=== PATIENT | female | born 1950 | race African-American/Black ===

== ENCOUNTER 2018-11-16 12:03 | Inpatient (IN) | payer MEDICARE, OTHER ==
[2018-11-16] VITALS (28 sets, daily range): BP systolic 85–130; BP diastolic 51–81
[~2018-11-16] VITALS: Ht 154.9 cm; Wt 50.8 kg
[~2018-11-16 12:03] MED LIST: ETOMIDATE 2MG/ML 10ML VIAL IV ONE; SUCCINYLCHOLINE CHLORIDE 200MG/10ML IV ONE
[2018-11-16] MEDS ORDERED: LORAZEPAM 2MG/ML CPJ IM STA (12:08)
[2018-11-16] MEDS ORDERED: LORAZEPAM 2MG/ML CPJ ONE (12:17)
[2018-11-16] MEDS ORDERED: NALOXONE HCL 0.4 MG/ML 1ML VIAL IV ONE (12:45)
[2018-11-16 13:04] LABS: BG BASE EXCESS -0.9 mmol/L (-2.0-2.0); BG CARBOXYHEMOGLOBIN 1.2 % (0.5-1.5); BG DEOXYHEMOGLOBIN 10.8 % (0.0-5.0); BG FRACTION INSPIRED OXYGEN 100; BG HCO3 ACT 28.5 mmol/L (22.0-26.0); BG METHEMOGLOBIN 0.3 % (0.0-1.5); BG OXYHEMOGLOBIN 87.7 % (94.0-97.0); BG PCO2 71.8 mmHg (35.0-45.0); BG PH 7.216 (7.350-7.450); BG PO2 69.1 mmHg (75.0-100.0); BG SAMPLE SITE RIGHT BRACHIAL; BG TOTAL HEMOGLOBIN 12.6 g/dL (12.0-18.0); BG VENT MODE MASK - NRB
[2018-11-16] MEDS ORDERED: IPRATROPIUM BROMIDE (0.02%) 0.5MG/2.5ML NEB HHN STA (13:39)
[2018-11-16] MEDS ORDERED: METHYLPREDNISOLONE SOD SUCC 125 MG/2 ML VIAL IV STA (13:39)
[2018-11-16 14:00] LABS: BASOPHILS % 1.5 % (0.0-2.0); HEMATOCRIT. 35.7 % (36.0-48.0); HEMOGLOBIN. 12.2 g/dL (12.0-16.0); LYMPHOCYTES % 12.1 % (20.0-50.0); MEAN CORPUSCULAR VOLUME 105.5 fL (81.0-99.0); MONOCYTES % 2.9 % (2.0-8.0); NEUTROPHILS % 83.5 % (40.0-76.0); PLATELET 413 x1000/uL (130-400); RED BLOOD CELL COUNT 3.39 mill/uL (4.2-5.4); RED CELL DISTRIBUTION WIDTH 15.2 % (11.6-14.6)
[2018-11-16] MEDS: ALBUTEROL (0.083%) 2.5MG/3ML NEB HHN SCH ×3 (14:00→15:00)
[2018-11-16 14:05] LABS: CHLORIDE 86 mEq/L (98-107)
[2018-11-16 14:07] LABS: INR 1.1; PROTHROMBIN TIME 10.8 sec (9.1-11.1)
[2018-11-16 14:13] LABS: CREATINE KINASE 124 IU/L (26-192)
[2018-11-16 15:13] LABS: CLARITY URINE CLEAR (CLEAR); COLOR URINE DARK YELLOW (YELLOW); KETONES URINE 1+ (NEGATIVE); LEUKOCYTE ESTERASE URINE NEGATIVE (NEGATIVE); NITRITE URINE NEGATIVE (NEGATIVE); OCCULT BLOOD URINE NEGATIVE (NEGATIVE); PROTEIN URINE TRACE (NEGATIVE); SPECIFIC GRAVITY URINE 1.019 (1.005-1.030)
[2018-11-16] MEDS ORDERED: SODIUM CHLORIDE 0.9% 1,000 ML IV ONE (15:35)
[2018-11-16] MEDS ORDERED: DEXT 5%/0.45% NACL 1000ML 1,000 ML IV SCH (16:38)
[2018-11-16] MEDS ORDERED: MIDAZOLAM HCL 50 MG in DEXTROSE 5% WATER 40 ML IV ONE (16:45)
[2018-11-16] MEDS ORDERED: CLONIDINE 0.1MG TABLET PO PRN (16:45)
[2018-11-16] MEDS ORDERED: IPRATROPIUM/ALBUTEROL 0.5-3(2.5)MG/3ML NEB INH PRN (16:45)
[2018-11-16] MEDS ORDERED: ACETAMINOPHEN 325MG TABLET PO PRN (16:45)
[2018-11-16] MEDS ORDERED: MAGNESIUM/ALUMINUM HYDROXIDE/SIMETHICONE 30ML UDC PO PRN (16:45)
[2018-11-16] MEDS ORDERED: NA PHOS,M-B/NA PHOS,DI-BA ENEMA 118ML PR PRN (16:45)
[2018-11-16] MEDS ORDERED: DIPHENHYDRAMINE 50MG/ML VIAL IV PRN (16:45)
[2018-11-16] MEDS ORDERED: HYDROCODONE/ACETAMINOPHEN 5/325MG TABLET PO PRN (16:45)
[2018-11-16] MEDS ORDERED: LORAZEPAM 2MG/ML CPJ IV PRN (16:45)
[2018-11-16] MEDS ORDERED: FENTANYL CITRATE/PF 50MCG/ML 2ML VIAL IV ONE (16:45)
[2018-11-16] MEDS ORDERED: MORPHINE SULFATE 4 MG/ML CPJ (NOT FOR IM USE) IV PRN (16:45)
[2018-11-16] MEDS ORDERED: DOCUSATE SODIUM 100MG CAPSULE PO PRN (16:45)
[2018-11-16] MEDS ORDERED: ONDANSETRON HCL 4MG/2ML INJ IV PRN (16:45)
[2018-11-16] MEDS ORDERED: GUAIFENESIN 200MG/10ML SUGAR FREE UDC PO PRN (16:45)
[2018-11-16 16:49] LABS: T4 FREE 1.1 ng/dL (0.76-1.46)
[2018-11-16 17:58] LABS: BG BASE EXCESS -2.5 mmol/L (-2.0-2.0); BG CARBOXYHEMOGLOBIN 0.5 % (0.5-1.5); BG DEOXYHEMOGLOBIN 0.3 % (0.0-5.0); BG FRACTION INSPIRED OXYGEN 100; BG HCO3 ACT 22.7 mmol/L (22.0-26.0); BG METHEMOGLOBIN 0.4 % (0.0-1.5); BG OXYGEN SATURATION 99.7 % (92.0-98.5); BG OXYHEMOGLOBIN 98.8 % (94.0-97.0); BG PCO2 40.9 mmHg (35.0-45.0); BG PH 7.363 (7.350-7.450); BG PO2 356.3 mmHg (75.0-100.0); BG SAMPLE SITE RIGHT BRACHIAL; BG TIDAL VOLUME(mL) 500 mL; BG TOTAL HEMOGLOBIN 12.5 g/dL (12.0-18.0); BG VENT MODE VENT - A/C; BG VENT RATE 14 set
[2018-11-16] MEDS ORDERED: ENOXAPARIN 40MG/0.4ML SYR SUBCUT SCH (18:00)
[2018-11-16] MEDS: METHYLPREDNISOLONE SOD SUCC 125 MG/2 ML VIAL IV SCH ×2 (18:08→23:53)
[2018-11-16] MEDS ORDERED: DEXT 5%/LACTATED RINGERS 1,000 ML IV SCH (18:15)
[2018-11-16] MEDS ORDERED: PHENYTOIN SODIUM 1,000 MG in SODIUM CHLORIDE 0.9% 100 ML IV NR (19:00)
[2018-11-16] MEDS: PIPERACILLIN/TAZ 3.375G PREMIX 50 ML IV SCH (20:54)
[2018-11-16] MEDS: IPRATROPIUM/ALBUTEROL 0.5-3(2.5)MG/3ML NEB HHN SCH (20:59)
[2018-11-16 21:00] LABS: CHLORIDE 90 mEq/L (98-107)
[2018-11-16] MEDS ORDERED: NICARDIPINE 100 MG in SODIUM CHLORIDE 0.9% 60 ML IV PRN (22:15)
[2018-11-17] VITALS (93 sets, daily range): BP systolic 60–152; BP diastolic -23–108
[2018-11-17] MEDS: IPRATROPIUM/ALBUTEROL 0.5-3(2.5)MG/3ML NEB HHN SCH ×6 (00:46→20:38)
[2018-11-17 01:13] LABS: *AMPHETAMINES SCREEN URINE NEGATIVE (NEGATIVE); *BARBITURATES SCREEN URINE NEGATIVE (NEGATIVE)
[2018-11-17 01:14] LABS: *BENZODIAZEPINES SCREEN URINE PRESUMTIVE POSITIVE (NEGATIVE); *COCAINE SCREEN URINE NEGATIVE (NEGATIVE); CANNABINOID URINE SCREEN PRESUMTIVE POSITIVE (NEGATIVE); METHADONE URINE SCREEN NEGATIVE (NEGATIVE); OPIATES URINE SCREEN NEGATIVE (NEGATIVE); PHENCYCLIDINE URINE SCREEN NEGATIVE (NEGATIVE)
[2018-11-17] MEDS: PHENYTOIN SODIUM 100MG/2ML VIAL IV SCH ×3 (03:48→18:49)
[2018-11-17] MEDS: PIPERACILLIN/TAZ 3.375G PREMIX 50 ML IV SCH ×3 (03:48→21:44)
[2018-11-17] MEDS: METHYLPREDNISOLONE SOD SUCC 125 MG/2 ML VIAL IV SCH ×3 (05:15→21:44)
[2018-11-17] MEDS: LACTATED RINGERS 1,000 ML IV SCH ×2 (05:42→21:25)
[2018-11-17 06:44] LABS: CHLORIDE 92 mEq/L (98-107)
[2018-11-17 06:45] LABS: HEMATOCRIT. 30.5 % (36.0-48.0); HEMOGLOBIN. 10.6 g/dL (12.0-16.0); MEAN CORPUSCULAR HEMOGLOBIN 36.4 pg (28.0-32.0); MEAN CORPUSCULAR VOLUME 104.4 fL (81.0-99.0); MEAN PLATELET VOLUME 7.6 fl (7.4-10.4); PLATELET 355 x1000/uL (130-400); RED BLOOD CELL COUNT 2.92 mill/uL (4.2-5.4); RED CELL DISTRIBUTION WIDTH 14.9 % (11.6-14.6)
[2018-11-17 06:56] LABS: LDL CHOLESTEROL 31 mg/dL (5-100)
[2018-11-17 06:57] LABS: HDL CHOLESTEROL 112 mg/dL (40-59); T4 FREE 1.07 ng/dL (0.76-1.46)
[2018-11-17] MEDS ORDERED: DEXT 5%/LACTATED RINGERS 1,000 ML IV SCH (07:00)
[2018-11-17] MEDS ORDERED: KCL 20MEQ/100ML PREMIX 100 ML IV ONE ×2 (08:00→10:00)
[2018-11-17] MEDS ORDERED: ASPIRIN 81MG EC TABLET PO SCH (09:00)
[2018-11-17 09:06] LABS: BG BASE EXCESS -0.1 mmol/L (-2.0-2.0); BG DEOXYHEMOGLOBIN 1.2 % (0.0-5.0); BG FRACTION INSPIRED OXYGEN 50; BG HCO3 ACT 22.7 mmol/L (22.0-26.0); BG OXYGEN SATURATION 98.8 % (92.0-98.5); BG OXYHEMOGLOBIN 98.8 % (94.0-97.0); BG PCO2 30.9 mmHg (35.0-45.0); BG PH 7.483 (7.350-7.450); BG PO2 147.5 mmHg (75.0-100.0); BG SAMPLE SITE RIGHT BRACHIAL; BG TIDAL VOLUME(mL) 500 mL; BG TOTAL HEMOGLOBIN 11.6 g/dL (12.0-18.0); BG VENT MODE VENT - A/C; BG VENT RATE 14 set
[2018-11-17] MEDS ORDERED: SODIUM CHLORIDE 3% 500ML IV SOLN IV ONE (09:15)
[2018-11-17] MEDS: DEXT 5%/0.9% NACL 1,000 ML IV SCH ×2 (09:15→20:19)
[2018-11-17 10:42] LABS: PLATELET ESTIMATE NORMAL
[2018-11-17] MEDS ORDERED: SODIUM CHLORIDE 3% 360 ML IV NR (11:00)
[2018-11-17] MEDS ORDERED: GADOBENATE DIMEGLUMINE 529 MG/ML 10ML IV ONE (11:05)
[2018-11-17] MEDS ORDERED: LIDOCAINE HCL/EPINEPHRINE 1%-EPI 1:100,000 20 ML VIAL ONE (12:31)
[2018-11-17] MEDS ORDERED: NORMAL SALINE 0.9% 10 ML SYR ONE (12:31)
[2018-11-17] MEDS ORDERED: BACITRACIN 15GM TUBE TOP ONE (12:31)
[2018-11-17] MEDS ORDERED: THROMBIN (BOVINE) 5000 UNITS/VIAL TOP ONE (12:31)
[2018-11-17] MEDS ORDERED: BACITRACIN 50,000 UNITS/VIAL ONE (12:32)
[2018-11-17] MEDS ORDERED: PROPOFOL 200MG/20ML VIAL IV ONE (13:00)
[2018-11-17] MEDS ORDERED: FENTANYL CITRATE/PF 50MCG/ML 2ML VIAL ONE (13:00)
[2018-11-17] MEDS ORDERED: MIDAZOLAM HCL 2 MG/2 ML VIAL ONE (13:02)
[2018-11-17] MEDS ORDERED: MORPHINE SULFATE 4 MG/ML CPJ (NOT FOR IM USE) IV PRN (13:30)
[2018-11-17] MEDS ORDERED: VECURONIUM BROMIDE 10 MG/VIAL IV ONE (14:53)
[2018-11-17] MEDS ORDERED: PHENYLEPHRINE HCL 10 MG/ML 1ML (IV VIAL) IV ONE (14:53)
[2018-11-17] MEDS ORDERED: CEFAZOLIN SODIUM 1000MG/VIAL ONE (14:54)
[2018-11-17] MEDS ORDERED: SODIUM CHLORIDE 0.9% 10ML VIAL ONE (14:54)
[2018-11-17] MEDS ORDERED: MAGNESIUM 2 G PREMIX 50 ML IV NR (18:30)
[2018-11-17] MEDS ORDERED: MAGNESIUM 1 G PREMIX 100 ML IV NR (20:30)
[2018-11-17] MEDS: NOREPINEPHRINE 4 MG in DEXT 5% WATER 246 ML IV PRN (22:23)
[2018-11-18] VITALS (96 sets, daily range): BP systolic 85–131; BP diastolic 27–87
[2018-11-18] MEDS: IPRATROPIUM/ALBUTEROL 0.5-3(2.5)MG/3ML NEB HHN SCH ×6 (00:10→20:09)
[2018-11-18] MEDS: DEXT 5%/0.9% NACL 1,000 ML IV SCH ×3 (01:50→17:44)
[2018-11-18] MEDS: PHENYTOIN SODIUM 100MG/2ML VIAL IV SCH ×3 (02:39→18:26)
[2018-11-18] MEDS: PIPERACILLIN/TAZ 3.375G PREMIX 50 ML IV SCH ×3 (04:01→21:23)
[2018-11-18] MEDS: METHYLPREDNISOLONE SOD SUCC 125 MG/2 ML VIAL IV SCH ×3 (04:01→16:27)
[2018-11-18 06:03] LABS: HEMATOCRIT. 30.1 % (36.0-48.0); HEMOGLOBIN. 10.2 g/dL (12.0-16.0); MEAN CORPUSCULAR HEMOGLOBIN 35.9 pg (28.0-32.0); MEAN CORPUSCULAR VOLUME 105.4 fL (81.0-99.0); PLATELET 352 x1000/uL (130-400); RED BLOOD CELL COUNT 2.86 mill/uL (4.2-5.4); RED CELL DISTRIBUTION WIDTH 15.1 % (11.6-14.6)
[2018-11-18 06:14] LABS: CHLORIDE 107 mEq/L (98-107)
[2018-11-18 08:22] LABS: BG BASE EXCESS -3.4 mmol/L (-2.0-2.0); BG CARBOXYHEMOGLOBIN 0.2 % (0.5-1.5); BG DEOXYHEMOGLOBIN 2.1 % (0.0-5.0); BG FRACTION INSPIRED OXYGEN 40; BG HCO3 ACT 19.7 mmol/L (22.0-26.0); BG METHEMOGLOBIN 0.2 % (0.0-1.5); BG OXYGEN SATURATION 97.9 % (92.0-98.5); BG OXYHEMOGLOBIN 97.5 % (94.0-97.0); BG PCO2 29.3 mmHg (35.0-45.0); BG PH 7.446 (7.350-7.450); BG PO2 115.5 mmHg (75.0-100.0); BG SAMPLE SITE A-LINE; BG TIDAL VOLUME(mL) 500 mL; BG TOTAL HEMOGLOBIN 10.7 g/dL (12.0-18.0); BG VENT MODE VENT - A/C; BG VENT RATE 12 set
[2018-11-18] MEDS ORDERED: POTASSIUM CHLORIDE 20MEQ TABLET SR PO SCH (09:00)
[2018-11-18 09:56] LABS: PLATELET ESTIMATE NORMAL
[2018-11-18] MEDS ORDERED: POTASSIUM CHLORIDE INJ 40 MEQ in DEXT 5% WATER 250 ML IV NR (10:00)
[2018-11-18] MEDS ORDERED: POTASSIUM CHLORIDE 20MEQ/PACKET NG SCH (11:06)
[2018-11-18] MEDS: POTASSIUM CHLORIDE 20MEQ/PACKET NG SCH (12:52)
[2018-11-18 19:09] LABS: T4 FREE 0.99 ng/dL (0.76-1.46)
[2018-11-18] MEDS: VANCOMYCIN 750 MG PREMIX 150 ML IV SCH (19:27)
[2018-11-19] VITALS (82 sets, daily range): BP systolic 79–124; BP diastolic 45–82
[2018-11-19] MEDS: IPRATROPIUM/ALBUTEROL 0.5-3(2.5)MG/3ML NEB HHN SCH ×6 (00:54→21:00)
[2018-11-19] MEDS: DEXT 5%/0.9% NACL 1,000 ML IV SCH ×3 (01:53→18:28)
[2018-11-19] MEDS: PHENYTOIN SODIUM 100MG/2ML VIAL IV SCH ×3 (03:24→18:27)
[2018-11-19 05:24] LABS: HEMOGLOBIN. 9.7 g/dL (12.0-16.0); MEAN CORPUSCULAR HEMOGLOBIN 35.5 pg (28.0-32.0); MEAN CORPUSCULAR VOLUME 105.6 fL (81.0-99.0); MEAN PLATELET VOLUME 8.4 fl (7.4-10.4); PLATELET 323 x1000/uL (130-400); RED BLOOD CELL COUNT 2.75 mill/uL (4.2-5.4); RED CELL DISTRIBUTION WIDTH 15.1 % (11.6-14.6)
[2018-11-19 05:26] LABS: CHLORIDE 112 mEq/L (98-107)
[2018-11-19] MEDS: PIPERACILLIN/TAZ 3.375G PREMIX 50 ML IV SCH ×3 (05:29→21:49)
[2018-11-19] MEDS: VANCOMYCIN 750 MG PREMIX 150 ML IV SCH ×2 (05:29→18:27)
[2018-11-19] MEDS: POTASSIUM CHLORIDE 20MEQ/PACKET NG SCH (10:03)
[2018-11-19 10:13] LABS: BG BASE EXCESS -5.4 mmol/L (-2.0-2.0); BG CARBOXYHEMOGLOBIN 0.3 % (0.5-1.5); BG DEOXYHEMOGLOBIN 2.6 % (0.0-5.0); BG HCO3 ACT 17.6 mmol/L (22.0-26.0); BG OXYGEN SATURATION 97.4 % (92.0-98.5); BG OXYHEMOGLOBIN 97.1 % (94.0-97.0); BG PCO2 26.6 mmHg (35.0-45.0); BG PH 7.439 (7.350-7.450); BG PO2 102.5 mmHg (75.0-100.0); BG SAMPLE SITE A-LINE; BG TIDAL VOLUME(mL) 500 mL; BG TOTAL HEMOGLOBIN 10.2 g/dL (12.0-18.0); BG VENT MODE VENT - A/C; BG VENT RATE 12 set
[2018-11-19] MEDS ORDERED: LIDOCAINE HCL 1% 20ML VIAL (Pyxis) INJ ONE (13:02)
[2018-11-19 14:06] LABS: PLATELET ESTIMATE NORMAL
[2018-11-19] MEDS: PETROLATUM,WHITE OPHTH OINT 3.5GM BOTHEYE SCH (21:48)
[2018-11-20] VITALS (66 sets, daily range): BP systolic 93–123; BP diastolic 33–70
[2018-11-20] MEDS: IPRATROPIUM/ALBUTEROL 0.5-3(2.5)MG/3ML NEB HHN SCH ×7 (00:22→23:58)
[2018-11-20] MEDS: PHENYTOIN SODIUM 100MG/2ML VIAL IV SCH ×3 (03:45→18:08)
[2018-11-20] MEDS: DEXT 5%/0.9% NACL 1,000 ML IV SCH ×3 (03:46→20:50)
[2018-11-20] MEDS: PIPERACILLIN/TAZ 3.375G PREMIX 50 ML IV SCH ×3 (05:49→20:13)
[2018-11-20] MEDS: VANCOMYCIN 750 MG PREMIX 150 ML IV SCH ×2 (05:50→18:08)
[2018-11-20] MEDS: POTASSIUM CHLORIDE 20MEQ/PACKET NG SCH (08:51)
[2018-11-20] MEDS: PETROLATUM,WHITE OPHTH OINT 3.5GM BOTHEYE SCH ×2 (08:51→20:13)
[2018-11-21] VITALS (49 sets, daily range): BP systolic 89–117; BP diastolic 51–80
[2018-11-21] MEDS: PHENYTOIN SODIUM 100MG/2ML VIAL IV SCH ×3 (06:42→18:25)
[2018-11-21] MEDS: VANCOMYCIN 750 MG PREMIX 150 ML IV SCH ×2 (06:42→18:25)
[2018-11-21] MEDS: PIPERACILLIN/TAZ 3.375G PREMIX 50 ML IV SCH ×3 (06:42→20:57)
[2018-11-21 06:51] LABS: CHLORIDE 123 mEq/L (98-107)
[2018-11-21 06:59] LABS: BASOPHILS % 0.4 % (0.0-2.0); EOSINOPHILS % 0.1 % (0.0-5.0); HEMATOCRIT. 26.4 % (36.0-48.0); HEMOGLOBIN. 8.6 g/dL (12.0-16.0); LYMPHOCYTES % 12.2 % (20.0-50.0); MEAN CORPUSCULAR HEMOGLOBIN 35.4 pg (28.0-32.0); MEAN CORPUSCULAR VOLUME 107.9 fL (81.0-99.0); MEAN PLATELET VOLUME 7.9 fl (7.4-10.4); MONOCYTES % 5.7 % (2.0-8.0); NEUTROPHILS % 81.6 % (40.0-76.0); PLATELET 212 x1000/uL (130-400); RED BLOOD CELL COUNT 2.44 mill/uL (4.2-5.4); RED CELL DISTRIBUTION WIDTH 15.5 % (11.6-14.6)
[2018-11-21 08:23] LABS: BG BASE EXCESS -1.7 mmol/L (-2.0-2.0); BG CARBOXYHEMOGLOBIN 0.4 % (0.5-1.5); BG DEOXYHEMOGLOBIN 2.9 % (0.0-5.0); BG HCO3 ACT 22.2 mmol/L (22.0-26.0); BG METHEMOGLOBIN 0.2 % (0.0-1.5); BG OXYGEN SATURATION 97.1 % (92.0-98.5); BG OXYHEMOGLOBIN 96.5 % (94.0-97.0); BG PCO2 34.5 mmHg (35.0-45.0); BG PH 7.426 (7.350-7.450); BG PO2 90.1 mmHg (75.0-100.0); BG SAMPLE SITE RIGHT RADIAL; BG TIDAL VOLUME(mL) 500 mL; BG TOTAL HEMOGLOBIN 10.8 g/dL (12.0-18.0); BG VENT MODE VENT - A/C; BG VENT RATE 12 set
[2018-11-21] MEDS: IPRATROPIUM/ALBUTEROL 0.5-3(2.5)MG/3ML NEB HHN SCH ×4 (09:09→20:00)
[2018-11-21] MEDS: DEXT 5%/0.9% NACL 1,000 ML IV SCH ×2 (09:15→23:04)
[2018-11-21] MEDS: POTASSIUM CHLORIDE 20MEQ/PACKET NG SCH (09:48)
[2018-11-21] MEDS: PETROLATUM,WHITE OPHTH OINT 3.5GM BOTHEYE SCH ×2 (09:49→20:57)
[2018-11-22] VITALS (42 sets, daily range): BP systolic 85–108; BP diastolic 45–68
[2018-11-22] MEDS: IPRATROPIUM/ALBUTEROL 0.5-3(2.5)MG/3ML NEB HHN SCH ×6 (00:12→20:16)
[2018-11-22] MEDS: PHENYTOIN SODIUM 100MG/2ML VIAL IV SCH ×3 (02:44→18:44)
[2018-11-22] MEDS: PIPERACILLIN/TAZ 3.375G PREMIX 50 ML IV SCH ×3 (04:59→21:02)
[2018-11-22] MEDS: VANCOMYCIN 750 MG PREMIX 150 ML IV SCH ×2 (05:41→18:37)
[2018-11-22 08:52] LABS: BG BASE EXCESS 1.5 mmol/L (-2.0-2.0); BG CARBOXYHEMOGLOBIN 1.3 % (0.5-1.5); BG DEOXYHEMOGLOBIN 5.4 % (0.0-5.0); BG FRACTION INSPIRED OXYGEN 40; BG HCO3 ACT 26.6 mmol/L (22.0-26.0); BG METHEMOGLOBIN 0.8 % (0.0-1.5); BG OXYGEN SATURATION 94.5 % (92.0-98.5); BG OXYHEMOGLOBIN 92.5 % (94.0-97.0); BG PCO2 44.3 mmHg (35.0-45.0); BG PH 7.397 (7.350-7.450); BG PO2 74.7 mmHg (75.0-100.0); BG SAMPLE SITE RIGHT RADIAL; BG TIDAL VOLUME(mL) 500 mL; BG TOTAL HEMOGLOBIN 9.2 g/dL (12.0-18.0); BG VENT MODE VENT - A/C; BG VENT RATE 12 set
[2018-11-22] MEDS: POTASSIUM CHLORIDE 20MEQ/PACKET NG SCH (09:08)
[2018-11-22] MEDS: PETROLATUM,WHITE OPHTH OINT 3.5GM BOTHEYE SCH ×2 (09:08→21:02)
[2018-11-22] MEDS ORDERED: SODIUM CHLORIDE 0.9% 500 ML IV ONE (14:00)
[2018-11-22] MEDS: DEXT 5%/0.9% NACL 1,000 ML IV SCH (16:39)
[2018-11-23] VITALS (39 sets, daily range): BP systolic 87–110; BP diastolic 46–64
[2018-11-23] MEDS: IPRATROPIUM/ALBUTEROL 0.5-3(2.5)MG/3ML NEB HHN SCH ×7 (00:06→23:54)
[2018-11-23] MEDS: PHENYTOIN SODIUM 100MG/2ML VIAL IV SCH ×3 (02:18→18:25)
[2018-11-23] MEDS: PIPERACILLIN/TAZ 3.375G PREMIX 50 ML IV SCH ×3 (05:02→20:34)
[2018-11-23] MEDS: VANCOMYCIN 750 MG PREMIX 150 ML IV SCH ×2 (05:37→18:25)
[2018-11-23 05:45] LABS: CHLORIDE 111 mEq/L (98-107)
[2018-11-23 05:49] LABS: PHOSPHORUS 2.7 mg/dL (2.5-4.9)
[2018-11-23 05:55] LABS: BASOPHILS % 0.3 % (0.0-2.0); EOSINOPHILS % 2.4 % (0.0-5.0); HEMATOCRIT. 23.6 % (36.0-48.0); HEMOGLOBIN. 7.5 g/dL (12.0-16.0); LYMPHOCYTES % 19.5 % (20.0-50.0); MEAN CORPUSCULAR HEMOGLOBIN 35.6 pg (28.0-32.0); MEAN CORPUSCULAR VOLUME 112.6 fL (81.0-99.0); MEAN PLATELET VOLUME 8.1 fl (7.4-10.4); MONOCYTES % 10.1 % (2.0-8.0); NEUTROPHILS % 67.7 % (40.0-76.0); PLATELET 139 x1000/uL (130-400); RED BLOOD CELL COUNT 2.09 mill/uL (4.2-5.4); RED CELL DISTRIBUTION WIDTH 16.4 % (11.6-14.6)
[2018-11-23 07:39] LABS: BG BASE EXCESS -1.5 mmol/L (-2.0-2.0); BG CARBOXYHEMOGLOBIN 0.2 % (0.5-1.5); BG DEOXYHEMOGLOBIN 3.3 % (0.0-5.0); BG HCO3 ACT 22.9 mmol/L (22.0-26.0); BG METHEMOGLOBIN 0.2 % (0.0-1.5); BG OXYGEN SATURATION 96.7 % (92.0-98.5); BG OXYHEMOGLOBIN 96.3 % (94.0-97.0); BG PCO2 36.8 mmHg (35.0-45.0); BG PH 7.411 (7.350-7.450); BG PO2 92.4 mmHg (75.0-100.0); BG SAMPLE SITE RIGHT RADIAL; BG TIDAL VOLUME(mL) 500 mL; BG TOTAL HEMOGLOBIN 9.4 g/dL (12.0-18.0); BG VENT MODE VENT - A/C; BG VENT RATE 12 set
[2018-11-23] MEDS: POTASSIUM CHLORIDE 20MEQ/PACKET NG SCH (08:52)
[2018-11-23] MEDS: DEXT 5%/0.9% NACL 1,000 ML IV SCH (08:53)
[2018-11-23] MEDS: PETROLATUM,WHITE OPHTH OINT 3.5GM BOTHEYE SCH ×2 (08:53→20:34)
[2018-11-23 11:19] LABS: PLATELET ESTIMATE NORMAL
[2018-11-23] MEDS ORDERED: MAGNESIUM 2 G PREMIX 50 ML IV NR (16:45)
[2018-11-24] VITALS (47 sets, daily range): BP systolic 58–138; BP diastolic 19–80
[2018-11-24] MEDS: PHENYTOIN SODIUM 100MG/2ML VIAL IV SCH ×3 (02:37→18:03)
[2018-11-24] MEDS: IPRATROPIUM/ALBUTEROL 0.5-3(2.5)MG/3ML NEB HHN SCH ×6 (04:15→23:51)
[2018-11-24] MEDS: VANCOMYCIN 750 MG PREMIX 150 ML IV SCH (05:31)
[2018-11-24] MEDS: DEXT 5%/0.9% NACL 1,000 ML IV SCH ×2 (05:33→21:30)
[2018-11-24] MEDS: POTASSIUM CHLORIDE 20MEQ/PACKET NG SCH (09:46)
[2018-11-24] MEDS: PETROLATUM,WHITE OPHTH OINT 3.5GM BOTHEYE SCH ×2 (09:48→21:30)
[2018-11-25] VITALS (39 sets, daily range): BP systolic 90–122; BP diastolic 50–78
[2018-11-25] MEDS: PHENYTOIN SODIUM 100MG/2ML VIAL IV SCH ×3 (02:44→18:41)
[2018-11-25] MEDS ORDERED: VANCOMYCIN 1 G PREMIX 200 ML IV SCH (03:00)
[2018-11-25] MEDS: IPRATROPIUM/ALBUTEROL 0.5-3(2.5)MG/3ML NEB HHN SCH ×5 (05:13→20:10)
[2018-11-25 08:36] LABS: BG BASE EXCESS 2.7 mmol/L (-2.0-2.0); BG CARBOXYHEMOGLOBIN 0.3 % (0.5-1.5); BG DEOXYHEMOGLOBIN 4.5 % (0.0-5.0); BG FRACTION INSPIRED OXYGEN 40; BG HCO3 ACT 26.2 mmol/L (22.0-26.0); BG METHEMOGLOBIN 0.1 % (0.0-1.5); BG OXYGEN SATURATION 95.5 % (92.0-98.5); BG OXYHEMOGLOBIN 95.1 % (94.0-97.0); BG PO2 83.4 mmHg (75.0-100.0); BG SAMPLE SITE RIGHT RADIAL; BG TIDAL VOLUME(mL) 500 mL; BG TOTAL HEMOGLOBIN 9.5 g/dL (12.0-18.0); BG VENT MODE VENT - A/C; BG VENT RATE 12 set
[2018-11-25] MEDS: POTASSIUM CHLORIDE 20MEQ/PACKET NG SCH (08:50)
[2018-11-25] MEDS: PETROLATUM,WHITE OPHTH OINT 3.5GM BOTHEYE SCH ×2 (08:51→22:04)
[2018-11-25] MEDS ORDERED: MORPHINE SULFATE 4 MG/ML CPJ (NOT FOR IM USE) IV NR (12:45)
[2018-11-25] MEDS: PANTOPRAZOLE SODIUM 40 MG/VIAL IV SCH (13:18)
[2018-11-25 13:49] LABS: BASOPHILS % 1.6 % (0.0-2.0); EOSINOPHILS % 0.9 % (0.0-5.0); HEMATOCRIT. 29.3 % (36.0-48.0); HEMOGLOBIN. 9.9 g/dL (12.0-16.0); LYMPHOCYTES % 21.4 % (20.0-50.0); MEAN CORPUSCULAR HEMOGLOBIN 35.4 pg (28.0-32.0); MEAN PLATELET VOLUME 7.9 fl (7.4-10.4); MONOCYTES % 7.5 % (2.0-8.0); NEUTROPHILS % 68.6 % (40.0-76.0); PLATELET 245 x1000/uL (130-400); RED CELL DISTRIBUTION WIDTH 16.2 % (11.6-14.6)
[2018-11-25 13:56] LABS: CHLORIDE 108 mEq/L (98-107)
[2018-11-26] VITALS (81 sets, daily range): BP systolic 38–171; BP diastolic 19–89
[2018-11-26] MEDS: IPRATROPIUM/ALBUTEROL 0.5-3(2.5)MG/3ML NEB HHN SCH ×6 (00:16→19:47)
[2018-11-26] MEDS: PHENYTOIN SODIUM 100MG/2ML VIAL IV SCH ×3 (05:00→18:20)
[2018-11-26] MEDS: NOREPINEPHRINE 4 MG in DEXT 5% WATER 246 ML IV PRN (08:30)
[2018-11-26] MEDS: PETROLATUM,WHITE OPHTH OINT 3.5GM BOTHEYE SCH ×2 (08:31→22:03)
[2018-11-26] MEDS: POTASSIUM CHLORIDE 20MEQ/PACKET NG SCH (09:41)
[2018-11-26] MEDS: PANTOPRAZOLE SODIUM 40 MG/VIAL IV SCH (09:41)
[2018-11-26] MEDS: MORPHINE SULFATE 4 MG/ML CPJ (NOT FOR IM USE) IV PRN (13:47)
[2018-11-26] MEDS: NOREPINEPHRINE 8 MG in DEXT 5% WATER 242 ML IV PRN (17:28)
[2018-11-27] VITALS (98 sets, daily range): BP systolic 57–157; BP diastolic 19–137
[2018-11-27] MEDS: IPRATROPIUM/ALBUTEROL 0.5-3(2.5)MG/3ML NEB HHN SCH ×6 (00:11→21:15)
[2018-11-27] MEDS: PHENYTOIN SODIUM 100MG/2ML VIAL IV SCH ×3 (03:58→18:01)
[2018-11-27] MEDS: MORPHINE SULFATE 4 MG/ML CPJ (NOT FOR IM USE) IV PRN ×2 (07:23→22:24)
[2018-11-27] MEDS: PANTOPRAZOLE SODIUM 40 MG/VIAL IV SCH (09:05)
[2018-11-27] MEDS: PETROLATUM,WHITE OPHTH OINT 3.5GM BOTHEYE SCH ×2 (09:05→20:55)
[2018-11-27] MEDS: POTASSIUM CHLORIDE 20MEQ/PACKET NG SCH (09:06)
[2018-11-27] MEDS: LORAZEPAM 2MG/ML CPJ IV PRN ×2 (16:08→22:28)
[2018-11-27] MEDS: NOREPINEPHRINE 8 MG in DEXT 5% WATER 242 ML IV PRN (20:59)
[2018-11-27 23:08] LABS: BASOPHILS % 0.7 % (0.0-2.0); CHLORIDE 108 mEq/L (98-107); HEMATOCRIT. 28.3 % (36.0-48.0); HEMOGLOBIN. 9.5 g/dL (12.0-16.0); LYMPHOCYTES % 18.8 % (20.0-50.0); MEAN CORPUSCULAR HEMOGLOBIN 35.3 pg (28.0-32.0); MEAN CORPUSCULAR VOLUME 105.4 fL (81.0-99.0); MEAN PLATELET VOLUME 7.7 fl (7.4-10.4); MONOCYTES % 7.2 % (2.0-8.0); NEUTROPHILS % 72.3 % (40.0-76.0); PLATELET 342 x1000/uL (130-400); RED BLOOD CELL COUNT 2.68 mill/uL (4.2-5.4); RED CELL DISTRIBUTION WIDTH 16.4 % (11.6-14.6)
[2018-11-28] VITALS (95 sets, daily range): BP systolic 59–178; BP diastolic 14–132
[2018-11-28] MEDS: IPRATROPIUM/ALBUTEROL 0.5-3(2.5)MG/3ML NEB HHN SCH ×6 (00:29→20:37)
[2018-11-28] MEDS: PHENYTOIN SODIUM 100MG/2ML VIAL IV SCH ×3 (04:00→18:04)
[2018-11-28] MEDS: LORAZEPAM 2MG/ML CPJ IV PRN (05:31)
[2018-11-28 07:27] LABS: BASOPHILS % 1.6 % (0.0-2.0); EOSINOPHILS % 1.3 % (0.0-5.0); HEMATOCRIT. 28.3 % (36.0-48.0); HEMOGLOBIN. 9.4 g/dL (12.0-16.0); LYMPHOCYTES % 20.3 % (20.0-50.0); MEAN CORPUSCULAR HEMOGLOBIN 35.2 pg (28.0-32.0); MEAN CORPUSCULAR VOLUME 105.7 fL (81.0-99.0); MEAN PLATELET VOLUME 8.6 fl (7.4-10.4); MONOCYTES % 6.8 % (2.0-8.0); PLATELET 183 x1000/uL (130-400); RED BLOOD CELL COUNT 2.68 mill/uL (4.2-5.4); RED CELL DISTRIBUTION WIDTH 16.6 % (11.6-14.6)
[2018-11-28 07:39] LABS: CHLORIDE 108 mEq/L (98-107)
[2018-11-28] MEDS: PETROLATUM,WHITE OPHTH OINT 3.5GM BOTHEYE SCH ×2 (09:13→21:15)
[2018-11-28] MEDS: PANTOPRAZOLE SODIUM 40 MG/VIAL IV SCH (09:14)
[2018-11-28] MEDS: POTASSIUM CHLORIDE 20MEQ/PACKET NG SCH (09:14)
[2018-11-28] MEDS ORDERED: LORAZEPAM 2MG/ML CPJ IV PRN (16:30)
[2018-11-28 16:48] LABS: INR 0.9; PROTHROMBIN TIME 9.4 sec (9.1-11.1)
[2018-11-28] MEDS: MORPHINE SULFATE 4 MG/ML CPJ (NOT FOR IM USE) IV PRN (21:04)
[2018-11-28] MEDS: NOREPINEPHRINE 8 MG in DEXT 5% WATER 242 ML IV PRN (23:36)
[2018-11-29] VITALS (48 sets, daily range): BP systolic 60–189; BP diastolic 26–129
[2018-11-29] MEDS: IPRATROPIUM/ALBUTEROL 0.5-3(2.5)MG/3ML NEB HHN SCH ×2 (00:39→05:13)
[2018-11-29] MEDS: LORAZEPAM 2MG/ML CPJ IV PRN (02:39)
[2018-11-29] MEDS: PHENYTOIN SODIUM 100MG/2ML VIAL IV SCH (03:16)
[2018-11-29] MEDS: MORPHINE SULFATE 250 MG in DEXT 5% WATER 240 ML IV PRN ×2 (05:27→19:12)
[2018-11-29] MEDS: PANTOPRAZOLE SODIUM 40 MG/VIAL IV SCH (09:00)
[2018-11-29] MEDS: PETROLATUM,WHITE OPHTH OINT 3.5GM BOTHEYE SCH (09:00)
[2018-11-29] MEDS: POTASSIUM CHLORIDE 20MEQ/PACKET NG SCH (09:00)
[2018-11-29] MEDS: ATROPINE SULFATE 1% OPHTH 2ML SL SCH ×2 (10:43→19:00)
[2018-11-30] MEDS: ATROPINE SULFATE 1% OPHTH 2ML SL SCH ×4 (03:00→12:46)
[2018-11-30 04:00] VITALS: BP 117/80
[2018-11-30 08:00] VITALS: BP 92/46
[2018-11-30 12:00] VITALS: BP 80/49
[2018-11-30] MEDS: MORPHINE SULFATE 250 MG in DEXT 5% WATER 240 ML IV PRN (12:59)
[2018-11-30 14:00] VITALS: BP 80/49
== END 2018-11-30 15:20 | disposition expired | DRG 853 ==
LOC: ER 12:03 → EDBEDREQSVC 13:33 → EDBEDREQ 13:33 → MICUNO 15:49 → EDBEDREQ 15:52 → ENRESERV 16:21 → MICUSO 11-22 09:30 → 6EST 11-29 17:01
PROVIDERS: ADMIT Internal Medicine Nephrology; ATTEND Internal Medicine Nephrology
PROC: 5A1955Z Respiratory Ventilation, Greater than 96 Consecutive Hours (ICD-10-PCS; principal; 2018-11-16)
PROC: 0BH17EZ Insertion of Endotracheal Airway into Trachea, Via Natural or Artificial Opening (ICD-10-PCS; 2018-11-16)
PROC: 00940ZZ Drainage of Intracranial Subdural Space, Open Approach (ICD-10-PCS; 2018-11-17)
PROC: 00H032Z Insertion of Monitoring Device into Brain, Percutaneous Approach (ICD-10-PCS; 2018-11-17)
PROC: 00C40ZZ Extirpation of Matter from Intracranial Subdural Space, Open Approach (ICD-10-PCS; 2018-11-17)
PROC: 00U207Z Supplement Dura Mater with Autologous Tissue Substitute, Open Approach (ICD-10-PCS; 2018-11-17)
PROC: 4A00X4Z Measurement of Central Nervous Electrical Activity, External Approach (ICD-10-PCS; 2018-11-25)
DX: A41.9 Sepsis, unspecified organism (principal); S06.5X9A Traumatic subdural hemorrhage with loss of consciousness of unspecified duration, initial encounter; J96.02 Acute respiratory failure with hypercapnia; G92 Toxic encephalopathy; R40.20 Unspecified coma; J69.0 Pneumonitis due to inhalation of food and vomit; E43 Unspecified severe protein-calorie malnutrition; J96.01 Acute respiratory failure with hypoxia; E87.4 Mixed disorder of acid-base balance; E87.1 Hypo-osmolality and hyponatremia; E87.2 Acidosis; I82.623 Acute embolism and thrombosis of deep veins of upper extremity, bilateral; Z99.11 Dependence on respirator [ventilator] status; J44.9 Chronic obstructive pulmonary disease, unspecified; E87.6 Hypokalemia; E03.9 Hypothyroidism, unspecified; R56.9 Unspecified convulsions; Z91.81 History of falling; D64.9 Anemia, unspecified; D18.1 Lymphangioma, any site; D63.8 Anemia in other chronic diseases classified elsewhere; G25.3 Myoclonus; J32.0 Chronic maxillary sinusitis; M47.9 Spondylosis, unspecified; Z51.5 Encounter for palliative care; Z66 Do not resuscitate; Z86.73 Personal history of transient ischemic attack (TIA), and cerebral infarction without residual deficits; R40.2430 Glasgow coma scale score 3-8, unspecified time; S01.512A Laceration without foreign body of oral cavity, initial encounter; X58.XXXA Exposure to other specified factors, initial encounter; Y93.89 Activity, other specified; Y92.89 Other specified places as the place of occurrence of the external cause; Y99.8 Other external cause status; Z68.21 Body mass index [BMI] 21.0-21.9, adult; T38.0X5A Adverse effect of glucocorticoids and synthetic analogues, initial encounter
CPT/HCPCS: 36415; 36569; 36600; 70553; 71045; 76937; 80048; 80061; 80202; 80305; 82375; 82533; 82550; 82805; 83605; 83735; 83930; 83935; 84100; 84132; 84133; 84145; 84295; 84300; 84439; 84443; 84481; 84484; 88108; 93005; 93970; 94003; 94640; 95829; 99291; A6261; A9577; C1713; C1725; C9113; J0330; J0690; J1165; J2060; J2250; J2270; J2274; J2310; J2370; J2543; J2704; J2930; J3010; J3370; J3475; J3480; J3490; J7030; J7040; J7042; J7050; J7060; J7121; J7620; L3908